=== PATIENT | male | born 1965 | race Caucasian/White ===

== ENCOUNTER 2025-02-19 06:16 | Day surgery (SDC) | payer OTHER, SELFPAY | END 2025-02-19 10:19 | disposition home or self-care (01) | LOC: GI 06:16 | PROVIDERS: ATTENDING PHYSICIAN Surgery | DX: Z12.11 Encounter for screening for malignant neoplasm of colon (principal); Z86.0100 Personal history of colon polyps, unspecified; K57.30 Diverticulosis of large intestine without perforation or abscess without bleeding | CPT/HCPCS: G0105 ==